=== PATIENT | female | born 1940 | race Hispanic/Latino ===

== ENCOUNTER 2016-09-24 11:17 | Inpatient (IN) | payer OTHER ==
[~2016-09-24] VITALS: Ht 157.5 cm; Wt 68.0 kg
[~2016-09-24 11:17] MED LIST: AUGMENTIN 875 M1 TAB PO; CLEOCIN HCL300 MG PO; DOXYCYCLINE MO100 MG PO; LISINOPRIL40 MG PO; MOBIC15 MG PO; VICODIN5-300 PO; VITAB121000 PO
--- NOTE | 2016-09-24 11:27 | NUR ---
C/O DIZZINESS SINCE THIS AM WITH VOMITING. ALSO C/O CHEST AND HEAD PAIN, DIAPHORETIC.
--- NOTE | 2016-09-24 11:37 | ED GENERAL ADULT ---
History of Present Illness General Chief Complaint: Headache Stated Complaint: JACE BURROUGHS Source: patient Exam Limitations: poor historian Vital Signs & Intake/Output Vital Signs & Intake/Output Vital Signs Date Time Temp Pulse Resp B/P B/P Pulse O2 O2 Flow FiO2 Mean Ox Delivery Rate 09/24 1350 96.5 63 20 192/88 95 Room Air 09/24 1241 193/93 09/24 1216 64 20 220/102 09/24 1138 96 Room Air 09/24 1125 95.9 63 22 166/82 22 Room Air Allergies Coded Allergies: NO KNOWN ALLERGIES (09/24/16) Reconcile Medications AMOXICILLIN/POTASSIUM CLAV (Augmentin 875-125 Tablet) 875 MG/125 MG TAB 1 TAB PO BID . CLINDAMYCIN HCL (Cleocin HCl) 300 MG CAP 1 CAP PO TID INFECTION Cyanocobalamin (Vitamin B-12) (Unknown Strength) TABLET (Unknown Dose) PO DAILY SUPPLEMENT (Reported) DOXYCYCLINE MONOHYDRATE (Doxycycline Monohydrate) 100 MG CAP 1 CAP PO BID INFECTION HYDROCODONE/ACETAMINOPHEN (Hydrocodon-Acetaminophen 5-325) 1 TAB TAB 1 TAB PO TID PRN PAIN Lisinopril 40 MG TABLET 1 TAB PO DAILY BP (Reported) Meloxicam (Mobic) 15 MG TAB 1 TAB PO DAILY PRN ARTHRITIS PAIN Triage Note: C/O DIZZINESS SINCE THIS AM WITH VOMITING. DENIES PAIN. Triage Nurses Notes Reviewed? yes Onset: Abrupt Duration: unknown duration Timing: recent history HPI: 09/24/16 2:41 pm 76-year-old female presents to the emergency department with an episode of a headache and vomiting. According to the patient she was in her usual state of health until today when she developed a sudden onset of severe headache and dry heaves. She denies any chest pain or shortness of breath. The onset of the symptoms were abrupt, the duration was just today, the severity is significant; as her symptoms required her to come to the emergency department for care. Past History Travel History Traveled to [place] past 21 day No Medical History Any Pertinent Medical History? 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 No Review of Systems Review of Systems Constitutional: Denies: fever. EENTM: Denies: visual changes. Respiratory: Denies: short of breath. Cardiovascular: Denies: chest pain. GI: Reports: nausea, vomiting. Genitourinary: Reports: no symptoms. Musculoskeletal: Reports: no symptoms. Skin: Denies: rash. Neurological/Psychological: Reports: headache. Hematologic/Endocrine: Denies: bruising, bleeding. Physical Exam Physical Exam General Appearance: alert, awake, anxious, moderate distress Head: atraumatic, normal appearance Eyes: Bilateral: normal appearance, PERRL, EOMI. Ears, Nose, Throat: normal pharynx, normal ENT inspection Neck: normal inspection, supple, full range of motion Respiratory: normal breath sounds, chest non-tender, no respiratory distress Cardiovascular: regular rate/rhythm Peripheral Pulses: 4+ radial (R), 4+ radial (L) Gastrointestinal: soft, non-tender Back: decreased range of motion Extremities: pedal edema Neurologic/Psych: no motor/sensory deficits, awake, alert, oriented x 3 Skin: intact, normal color, warm/dry Core Measures ACS in differential dx? Yes CVA/TIA Diagnosis: No Severe Sepsis Present: No Septic Shock Present: No Progress Differential Diagnoses I considered the following diagnoses in my evaluation of the patient: [CVA, hypertensive urgency, aortic dissection, acute coronary syndrome] Plan of Care: Orders Procedure Date/time Status Admit to inpatient 09/24 1441 Active Saline Lock 09/24 1153 Active TROPONIN LEVEL 09/24 1153 Complete LYME TITRE 09/24 1153 Active WESTERGREN SED RATE 09/24 1153 Active COMPREHENSIVE METABOLIC PANEL 09/24 1153 Complete CBC WITHOUT DIFFERENTIAL 09/24 1153 Active EKG 09/24 1130 Active Laboratory Tests 09/24/ 1205: Anion Gap 11, Estimated GFR > 60, BUN/Creatinine Ratio 34.3 H, Glucose 132 H, Calcium 9.2, Total Bilirubin 0.5, AST 24, ALT 36, Alkaline Phosphatase 49, Troponin I 0.21 *H, Total Protein 6.8, Albumin 3.9, Globulin 2.9, Albumin/ Globulin Ratio 1.3, CBC w Diff NO MAN DIFF REQ, RBC 3.92 L, MCV 96.7, MCH 31.9 H, RDW 13.3, MPV 7.5, Gran % 66.7, Lymphocytes % 24.8, Monocytes % 4.7, Eosinophils % 3.3, Basophils % 0.5, Absolute Granulocytes 4.7, Absolute Lymphocytes 1.8, Absolute Monocytes 0.3, Absolute Eosinophils 0.2, Absolute Basophils 0, PUBS MCHC 33.0, ESR Westergren Pending, Lyme Disease Antibody Pending Initial ED EKG: NSR, old AWMI, NO CHANGE Departure Departure Disposition: STILL A PATIENT Condition: Stable Clinical Impression Primary Impression: Hypertensive urgency Secondary Impressions: Coronary syndrome, acute Referrals: XIOMARA CALLEJAS MD (PCP/Family) Departure Forms: Customer Survey General Discharge Information Comments CT HEAD IMPRESSION: No evidence for acute intracranial injury. Age-appropriate appearance of the brain. 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 <Electronically signed in Other Vendor System> SIGNED BY: LUDMILA OZUNA MD 09/24/16 1172 The patient was given aspirin. I discussed the case with Dr. Oliva who wiill evaluate the patient in the Emergency Department. Chest x-ray was negative Admission Note Spoke With: XIOMARA CALLEJAS MD Documentation of Exam: Documentation of any treatments & extenuating circumstances including Concerns Regarding Discharge (functional status, medication knowledge or non-compliance, living conditions, etc.) that warrant an admission rather than observation: [The patient will need serial troponins, cardiology consultation, IV antiemetics, IV antihypertensive, possible echocardiogram] Critical Care Note Critical Care Note Critical Care Time: 30-74 min
[2016-09-24 12:12] LABS: ABSOLUTE BASOPHIL COUNT 0 /CUMM (0.0-0.2); ABSOLUTE EOSINOPHIL COUNT 0.2 /CUMM (0.0-0.7); ABSOLUTE GRANULOCYTE CT 4.7 /CUMM (1.4-6.5); ABSOLUTE LYMPH COUNT 1.8 /CUMM (1.2-3.4); ABSOLUTE MONOCYTE COUNT 0.3 /CUMM (0.10-0.60); BASOPHIL % 0.5 % (0.0-2.0); EOSINOPHIL % 3.3 % (0-5); GRANULOCYTE % 66.7 % (42.2-75.2); HEMATOCRIT 37.9 % (37-47); MEAN CORPUSCULAR HGB 31.9 PG (27.0-31.0); MEAN CORPUSCULAR VOLUME 96.7 FL (81.0-99.0); MEAN PLATELET VOLUME 7.5 FL (7.4-10.4); PLATELET COUNT 260 /CUMM (130-400); RBC DISTRIBUTION WIDTH 13.3 % (11.5-14.5); RED BLOOD CELL CT 3.92 /CUMM (4.20-5.40); WHITE BLOOD CELL COUNT 7.1 /CUMM (4.8-10.8)
--- NOTE | 2016-09-24 12:25 | CT SCAN REPORT ---
EXAMINATION: CT HEAD WITHOUT CONTRAST CLINICAL INFORMATION: Headache. COMPARISON: None. TECHNIQUE: Contiguous axial images of the brain were obtained without IV contrast. DLP: 621 mGy-cm. FINDINGS: There are no pathologic extra-axial fluid collections. The lateral, third, fourth ventricles are mildly prominent, but age-appropriate and concordant with the appearance of the sulci. There is no evidence for acute intraparenchymal hemorrhage or infarct. There is mild periventricular low-attenuation present indicative of small vessel disease. There is neither mass nor mass effect. There is no shift of midline structures. The paranasal sinuses and mastoid air cells are clear. There are no osseous lesions. IMPRESSION: No evidence for acute intracranial injury. Age-appropriate appearance of the brain.
--- NOTE | 2016-09-24 12:43 | NUR ---
PATIENT IS UP AND AMBULATED TO BR.
--- NOTE | 2016-09-24 14:36 | RADIOLOGY REPORT ---
EXAMINATION: CHEST 1 VIEW CLINICAL INFORMATION: Vomiting. Elevated troponin. COMPARISON: 11/02/2012. TECHNIQUE: An AP view of the chest is provided. FINDINGS: The cardiac silhouette is not enlarged. The mediastinal and hilar contours are unremarkable. There are neither pleural effusions nor pneumothoraces. There is marked elevation to the right hemidiaphragm, unchanged from prior exam. There are no consolidations. The osseous structures are unremarkable. Surgical clips are identified within the right upper quadrant. IMPRESSION: No evidence for acute disease.
--- NOTE | 2016-09-24 14:57 | NUR ---
PATIENT RESTING QUIETLY W/ EYES CLOSED AND DEEP/EVEN RESPIRATIONS. OFFERS NO C/O.
[2016-09-24] MEDS ORDERED: LISINOPRIL40 M1 PO (15:18)
[2016-09-24] MEDS ORDERED: VITAMIN B122500 MC1 PO (15:19)
--- NOTE | 2016-09-24 15:34 | History & Physical ---
See Addendum General Information and HPI MD Statement: I have seen and personally examined DREW DRISCOLL and documented this H&P. The patient is a 76 year old F who presented with a patient stated chief complaint of [hypertensvie urgency]. Source of Information: patient, family Exam Limitations: no limitations History of Present Illness: is a 76-year-old lady with past medical history of hypertension, hyperlipidemia who came in with chief complaint of headache and nausea. She complained of dizziness and one episode of vomiting prior to today's presentation. The the patient was in her usual state of health until today prior to presentation she started experiencing sudden onset of severe headache and started dry heating. The onset of symptoms was abrupt, and her headache was very severe. She describes her headache as 10/10, dull aching,all over, that started suddenly when she was talking on the phone today.She endorses that the history that she was her usual self and like everyday she visited the [facility] which she does daily and continued to work outside in the yard and between 9am and 10 am today morning, she suddenly started having this headache which was 12/10, dull aching, all over and she has to put her phone down and call for some help.She also felt lazy, dizzy and lightheaded. She was concerned as the headache stayed and therefore called EMS. She also c/o some funny feeling in the palm, with lasted for sometime. She denied any chest pain,blurry vision, worsening weakness ,slurring speech, nausea, vomiting, diarrhea. She lives by herself and most of the times is outdoor and reports to have tick bite ( she says she keeps having them as she is working in yard all the time. She does all her activities of living by herself and also drives around. Of lately she has been more weak and has falls on ans off but usually they are not bad and she can stabilise herself without having any major injury. She has also been constipated for sometimes nad uses medications for the same. Allergies/Medications Allergies: Coded Allergies: amlodipine (Intermediate, FLUSHING RASH TINGLING LIPS/TONGUE 09/24/16) Home Med list Cyanocobalamin (Vitamin B-12) (Vitamin B12) (Unknown Strength) TABLET (Unknown Dose) PO DAILY SUPPLEMENT (Reported) Lisinopril 40 MG TABLET 1 TAB PO DAILY BP (Reported) Compliance With Home Meds: POOR Past History Travel History Traveled to [place] past 21 day No Medical History Neurological: NONE EENT: NONE Cardiovascular: hypertension, Respiratory: NONE Gastrointestinal: CHOLELITHIASIS Hepatic: NONE Renal: NONE Musculoskeletal: NONE Psychiatric: NONE Endocrine: NONE Blood Disorders: NONE Cancer(s): 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 Home Who Do You Live With? self Services at Home: None Primary Language: Turkmen Smoking Status: Never Smoked ETOH Use: occasional use Illicit Drug Use: denies illicit drug use Functional Ability ADLs Independent: dressing, eating, toileting, bathing. Ambulation: independent IADLs Independent: shopping, housework, finances, food prep, telephone, transportation , medication admin. Review of Systems Review of Systems Constitutional: Reports: malaise, weakness. Denies: chills, diaphoresis, fever, unexplained weight loss. EENTM: Denies: blurred vision, double vision, visual changes, eye pain. Cardiovascular: Reports: palpitations. Denies: chest pain, edema, orthopena, peripheral edema, syncope. Respiratory: Denies: cough, hemoptysis, orthopnea, short of breath. GI: Denies: abdominal pain, bloating, constipation, diarrhea, distention. Genitourinary: Reports: no symptoms. Musculoskeletal: Reports: no symptoms. Skin: Reports: no symptoms. Neurological/Psychological: Reports: see HPI. Hematologic/Endocrine: Reports: no symptoms. Immunologic/Allergic: Reports: no symptoms. All Other Systems: Reviewed and Negative Exam & Diagnostic Data Last 24 Hrs of Vital Signs/I&O Vital Signs Date Time Temp Pulse Resp B/P B/P Pulse O2 O2 Flow FiO2 Mean Ox Delivery Rate 09/25 0023 98.8 75 16 106/60 95 Room Air 09/24 1753 98.1 78 14 130/68 99 Room Air 09/24 1714 83 174/89 09/24 1657 83 174/89 09/24 1648 97.4 84 18 174/89 97 Room Air 09/24 1350 96.5 63 20 192/88 95 Room Air 09/24 1241 193/93 09/24 1216 64 20 220/102 09/24 1138 96 Room Air 09/24 1125 95.9 63 22 166/82 22 Room Air Intake & Output 09/25 0800 09/25 0000 09/24 1600 Intake Total 120 Output Total 400 Balance -280 Intake, Oral 120 Output, Urine 400 Patient 68.039 kg 68.039 kg Weight Weight Reported by Patient Measurement Method Physical Exam General Appearance Alert, Oriented X3, Cooperative, No Acute Distress Skin small macular red lesion from bug bite various places, arm and leg Skin Temp/Moisture Exam: Cool/Dry Sepsis Skin Exam (color): Normal for Ethnicity Neck Supple, No JVD Lymphatic no lad Cardiovascular Normal S1, Normal S2, No Murmurs Lungs Clear to Auscultation, Normal Air Movement Abdomen Normal Bowel Sounds, Soft, No Tenderness Neurological Strength at 5/5 X4 Ext, Normal Tone, Sensation Intact Extremities No Clubbing, No Cyanosis, No Edema, Normal Pulses Vascular Normal Pulses Diagnostic Data EKG Results NSR, 61, Normal axis, PA 172, QTC 435 Assessment/Plan Assessment: is a 76-year-old lady with past medical history of hypertension, hyperlipidemia who came in with chief complaint of headache and nausea. She complained of dizziness and one episode of vomiting prior to today's presentation. The the patient was in her usual state of health until today prior to presentation she started experiencing sudden onset of severe headache and started try heating. The onset of symptoms was abrupt, and her headache was very severe. She received one time of IV Tylenol, 20 mg of IV hydralazine, and time of IV Zofran, baby aspirin stat On arrival at the ER,her blood pressure was noted to be 166/82, pulse was 63, temperature was 95.9, respiration was 22. subsequently her blood pressure was found to increase to 192/88 with numbers : systolic as high as 220 and diastolic upto 102. Relevant lab white count of 7.1, H/H of 12.5/37.9, platelet of 260, MCV was noted to be 36.7. Electrolytes sodium of 1:30, potassium of 4.3, BUN/creatinine 24/0.7, glucose of 132. LFTs within normal limit, total protein of 6.8, albumin of 3.9. Initial set of troponin was found to be positive at 0.21. Lymes antibody titer were sent from the ER which are pending. Problem list alongwith assessment and plan #1 Hypertensive urgency with no end organ damage #2 positive troponin most likely 2/2 to demand ischemia. #3 h/o HTN #4 H/o HL Plan * Ct to monitor vitals, i/o * Ct to trend EKG/Troponin * Initial troponin positive but second trending down, will trend third level and if trending down will not check further. * Most likely 2/2 to demand ischemia. * Continue to monitor the blood pressure closely, donot drop aggressively, target around 160 * Patient received 20 mg iv hydralazine push, however initial the bP came down ut continued to stay 200/100 again. * Therefore, she received additional 10 mg iv push of hydralazine. * She was also given 5 mg amlodipine, however she didn't tolerate it well had tingling numbness in the lips, therefore this was held * Ct lisinopril 40 mg OD from am. * Echocardiogram to asses LVF in am. * Cardiology consult appreciated. Please list Amlodipine as allergy : causes lip swelling, tingling and numbness around lip. DNR/DNI DVT px lovenox Heart healthy diet. PP As Ranked By This Provider Problem List: 1. Hypertensive urgency Core Measures/Miscellaneous Acute Coronary Syndrome ACS Diagnosis: No Cerebrovascular Accident CVA/TIA Diagnosis: No Congestive Heart Failure CHF Diagnosis: No Venous Thromboembolism VTE Risk Factors: Age > 40 No [facility] VTE prophylaxis d/t: No contraindications No VTE Pharm Prophylaxis d/t: No contraindications VTE Diagnosis: No VTE Type: NONE VTE Confirmed by (Test): NONE Severe Sepsis Severe Sepsis Present: No Septic Shock Septic Shock Present: No Miscellaneous Documentation Attending Case Discussed With: DR melgar Primary Care Physician: XIOMARA CALLEJAS MD Patient sees these Specialists .. Level of Patient Care: Telemetry Resident Review Statement Resident Statement: admitted by resident
--- NOTE | 2016-09-24 15:53 | NUR ---
REPEAT TROPONIN DRAWN AND SENT TO LAB.
--- NOTE | 2016-09-24 15:53 | NUR ---
HOUSE STAFF AND DR. ALFARO WITH PT, EKG TO BE DONE WHEN THEY ARE FINISHED.
--- NOTE | 2016-09-24 16:33 | NUR ---
CRITICAL TEST RESULTS [id number] DREW DRISCOLL 76 F TESTS AND RESULTS: TROP. 0.19 Results received and read back by: ANGIE CERON Results received date and time: 09/24/16 1634 The following provider was notified of the results, and read the results back: Notified date and time: 09/24/16 at 1634
--- NOTE | 2016-09-24 16:37 | NUR ---
PT ADMITTED TO ROOM 180-2; ROOM IS CLEAN
[2016-09-24 17:53] VITALS: BP 130/68
--- NOTE | 2016-09-24 19:08 | NUR ---
ADMISSION NOTE/ALLERGIC REACTION: PT ARRIVED TO FLOOR AT 17:40 PM ON TELE MONITOR ACCOMPANIED BY ED RN [place]. PLACED ON TELE MONITOR & ORIENTED TO ROOM. THIS RN NOTICED A BRIGHT RED RASH ACROSS THE BRIDGE OF THE NOSE. UPON ASSESSMENT RASH CONTINUED TO SPREAD AROUND THE MOUTH AND JAW TO THE CHEST. PT C/O NUMB/TINGLY FEELING ON THE LIPS. NO RESP DISTRESS. DR THORNE CALLED IMMEDIATELY & CAME TO BEDSIDE TO EVALUATE. IV BENEDRYL GIVEN PER EMAR. PT C/O NUMB/TINGLY SENSATION ON TONGUE AT THIS TIME. THIS RN REMAINED AT BEDSIDE FOR 45 MINUTES TO CONTINUOUSLY ASSESS THE PT. SYMPTOMS SLOWLY DECREASED. PT DENIES NUMB/TINGLY SENSATION. RASH PERSISTS ON NOSE AND APPEARS TO BE RESOLVING ON THE CHEST AND JAW. WILL CONTINUE TO MONITOR.
--- NOTE | 2016-09-24 19:32 | Admission Certification ---
Admission Certification Certification Statement - As attending physician, I certify that at the time of - admission, based on clinical presentation, severity of - symptoms, need for further diagnostic testing and - therapeutic interventions, and risk of adverse outcomes - without in-hospital treatment, in my clinical assessment, - this patient requires an acute hospital stay for a minimum - of two nights or longer. I have also considered psychsocial - factors such as support system, advanced age, financial - issues, cognitive issues, and failed out-patient treatments, - past re-admission history, safety of patient, and lack of - compliance as applicable. Specific rationale supporting this admission is: 6 nausea vomiting very elevated blood pressure hypertensive emergency and a bump in the troponin
--- NOTE | 2016-09-24 19:33 | PN- Att Addend ---
Attending Addendum Attending Brief Note 76-year-old Camb[place]ian female. Today suddenly she didn't feel good planing of nausea vomiting and severe headache made her come to the emergency room where he was found to have very high blood pressure which had a CAT scan of the head which showed no acute pathology and she was treated urgently with IV medications and her blood pressure came down, but her troponin was 0.21 was might be demand ischemia but will admit have a cardiology consultation monitor her blood pressure closely. Laboratory Tests 09/24 09/24 09/24 1552 1542 1205 Chemistry Sodium (137 - 145 mmol/L) 138 Potassium (3.5 - 5.1 mmol/L) 4.3 Chloride (98 - 107 mmol/L) 99 Carbon Dioxide (22 - 30 mmol/L) 28 Anion Gap (5 - 16) 11 BUN (7 - 17 mg/dL) 24 H Creatinine (0.5 - 1.0 mg/dL) 0.7 Estimated GFR (>60 ml/min) > 60 BUN/Creatinine Ratio (7 - 25 %) 34.3 H Glucose (65 - 99 mg/dL) 132 H Calcium (8.4 - 10.2 mg/dL) 9.2 Total Bilirubin (0.2 - 1.3 mg/dL) 0.5 AST (14 - 36 U/L) 24 ALT (9 - 52 U/L) 36 Alkaline Phosphatase (<127 U/L) 49 Troponin I (< 0.11 ng/ml) 0.19 *H Cancelled 0.21 *H Total Protein (6.3 - 8.2 g/dL) 6.8 Albumin (3.5 - 5.0 g/dL) 3.9 Globulin (1.9 - 4.2 gm/dL) 2.9 Albumin/Globulin Ratio (1.1 - 2.2 %) 1.3 Hematology CBC w Diff NO MAN DIFF REQ WBC (4.8 - 10.8 /CUMM) 7.1 RBC (4.20 - 5.40 /CUMM) 3.92 L Hgb (12.0 - 16.0 G/DL) 12.5 Hct (37 - 47 %) 37.9 MCV (81.0 - 99.0 FL) 96.7 MCH (27.0 - 31.0 PG) 31.9 H RDW (11.5 - 14.5 %) 13.3 Plt Count (130 - 400 /CUMM) 260 MPV (7.4 - 10.4 FL) 7.5 Gran % (42.2 - 75.2 %) 66.7 Lymphocytes % (20.5 - 51.1 %) 24.8 Monocytes % (1.7 - 9.3 %) 4.7 Eosinophils % (0 - 5 %) 3.3 Basophils % (0.0 - 2.0 %) 0.5 Absolute Granulocytes (1.4 - 6.5 /CUMM) 4.7 Absolute Lymphocytes (1.2 - 3.4 /CUMM) 1.8 Absolute Monocytes (0.10 - 0.60 /CUMM) 0.3 Absolute Eosinophils (0.0 - 0.7 /CUMM) 0.2 Absolute Basophils (0.0 - 0.2 /CUMM) 0 PUBS MCHC (33.0 - 37.0 G/DL) 33.0 ESR Westergren (0 - 20 MM) 21 H Serology Lyme Disease Antibody Pending
--- NOTE | 2016-09-24 20:18 | Cons- Cardiology ---
General Information and HPI Consulting Request Date of Consult: 09/24/16 Requested By: XIOMARA CALLEJAS MD Reason for Consult: Hypertensive urgency History of Present Illness: the patient is a 76-year-old female with history of hypertension and hyperlipidemia who presents with complaint of nausea, vomiting, and headache. She was feeling well until the day of admission when she developed sudden onset of severe headache. This was associated with dizziness, and a single episode of vomiting. She has had no chest pain. No palpitations. No syncope. No orthopnea. No lightheadedness or dizziness. Upon arrival in the emergency department, she was noted to have severely elevated blood pressure. She was treated with IV hydralazine for the hypertension. She notes that she took her lisinopril this morning, however she vomited afterwards. Allergies/Medications Allergies: Coded Allergies: amlodipine (Intermediate, FLUSHING RASH TINGLING LIPS/TONGUE 09/24/16) Home Med List: Cyanocobalamin (Vitamin B-12) (Vitamin B12) (Unknown Strength) TABLET (Unknown Dose) PO DAILY SUPPLEMENT (Reported) Lisinopril 40 MG TABLET 1 TAB PO DAILY BP (Reported) Current Medications: Current Medications Sig/Chad Start time Last Medication Dose Route Stop Time Status Admin Acetaminophen 650 MG Q6P PRN 09/24 1545 AC PO Acetaminophen 1,000 MG Q6P PRN 09/24 1545 AC IV Acetaminophen 0 .STK-MED ONE 09/24 1215 DC IV Acetaminophen 1,000 MG ONCE ONE 09/24 1200 DC 09/24 IV 09/24 1201 1216 Amlodipine Besylate 0 .STK-MED ONE 09/24 1716 DC PO Amlodipine Besylate 5 MG ONCE ONE 09/24 1645 DC 09/24 PO 09/24 1646 1714 Aspirin 0 .STK-MED ONE 09/24 1320 DC PO Aspirin 162 MG ONCE ONE 09/24 1315 DC 09/24 PO 09/24 1316 1320 Cyanocobalamin 1,000 MCG DAILY 09/25 1000 AC PO Diphenhydramine HCl 25 MG ONCE ONE 09/24 1800 DC 09/24 IV 09/24 1801 1756 Enoxaparin Sodium 40 MG DAILY@1600 09/25 1600 AC SC Enoxaparin Sodium 0 .STK-MED ONE 09/24 1606 DC SC Enoxaparin Sodium 40 MG DAILY 09/24 1540 DC 09/24 SC 1604 Hydralazine HCl 10 MG ONCE ONE 09/24 1645 DC 09/24 IV 09/24 1646 1655 Hydralazine HCl 0 .STK-MED ONE 09/24 1633 DC .ROUTE Hydralazine HCl 0 .STK-MED ONE 09/24 1215 DC .ROUTE Hydralazine HCl 5 MG ONCE ONE 09/24 1200 DC 09/24 IV 09/24 1201 1216 Lisinopril 40 MG DAILY 09/25 1000 AC PO Ondansetron HCl 4 MG ONCE ONE 09/24 1800 DC IV 09/24 1801 Ondansetron HCl 0 .STK-MED ONE 09/24 1320 DC .ROUTE Ondansetron HCl 4 MG ONCE ONE 09/24 1315 DC 09/24 IV 09/24 1316 1320 Oxycodone/ 2 TAB Q6P PRN 09/24 1545 AC Acetaminophen PO Review of Systems Review of Systems: No rash. No tremor. No melena. No diaphoresis. All other systems are reviewed and are noted to be negative. Past History Travel History Traveled to [place] past 21 day No Medical History Blood Transfusion Hx: No Neurological: NONE EENT: NONE Cardiovascular: hypertension, hyperlipidemia Respiratory: NONE Gastrointestinal: GERD, CHOLELITHIASIS Hepatic: NONE Renal: NONE Musculoskeletal: NONE Psychiatric: anxiety, depression Endocrine: NONE Blood Disorders: NONE Cancer(s): NONE REGISTERED REPRESENTATIVE/Reproductive: NONE Surgical History Surgical History: hysterectomy Family History Relations & Conditions If Any: FATHER FH: myocardial infarction Psychosocial History Where Do You Live? Home Services at Home: None Smoking Status: Never Smoked ETOH Use: denies use Exam & Diagnostic Data Vital Signs and I&O Vital Signs Date Time Temp Pulse Resp B/P B/P Pulse O2 O2 Flow FiO2 Mean Ox Delivery Rate 09/24 1753 98.1 78 14 130/68 99 Room Air 09/24 1714 83 174/89 09/24 1657 83 174/89 09/24 1648 97.4 84 18 174/89 97 Room Air 09/24 1350 96.5 63 20 192/88 95 Room Air 09/24 1241 193/93 09/24 1216 64 20 220/102 09/24 1138 96 Room Air 09/24 1125 95.9 63 22 166/82 22 Room Air Intake & Output 09/24 1600 09/24 0800 09/24 0000 09/23 1600 09/23 0800 09/23 0000 Intake Total Output Total Balance Patient 150 lb Weight Weight Reported by Patient Measurement Method Physical Exam: Gen: The patient is in no acute distress HEENT: Normal nose, ears, and oropharynx. Pupils equal bilaterally. Conjunctiva normal. Neck: Supple with no JVD, no masses, and no thyromegaly Lungs: Clear to auscultation with normal respiratory effort Heart: RRR, S1, S2, no murmurs. No peripheral edema, 2+ pulses in the lower extremities bilaterally Abdomen: Soft, nontender, no masses. No hepatomegaly. No splenomegaly Extremities: No clubbing or cyanosis. Normal muscle strength in the upper and lower extremities. Skin: Normal skin turgor with no skin ulcers or lesions noted. Neuro: Cranial nerves intact. Sensation intact Psych: Alert and oriented 3 with appropriate affect Labs/Ronaldo Results: Laboratory Tests 09/24 09/24 09/24 1552 1542 1205 Chemistry Sodium (137 - 145 mmol/L) 138 Potassium (3.5 - 5.1 mmol/L) 4.3 Chloride (98 - 107 mmol/L) 99 Carbon Dioxide (22 - 30 mmol/L) 28 Anion Gap (5 - 16) 11 BUN (7 - 17 mg/dL) 24 H Creatinine (0.5 - 1.0 mg/dL) 0.7 Estimated GFR (>60 ml/min) > 60 BUN/Creatinine Ratio (7 - 25 %) 34.3 H Glucose (65 - 99 mg/dL) 132 H Calcium (8.4 - 10.2 mg/dL) 9.2 Total Bilirubin (0.2 - 1.3 mg/dL) 0.5 AST (14 - 36 U/L) 24 ALT (9 - 52 U/L) 36 Alkaline Phosphatase (<127 U/L) 49 Troponin I (< 0.11 ng/ml) 0.19 *H Cancelled 0.21 *H Total Protein (6.3 - 8.2 g/dL) 6.8 Albumin (3.5 - 5.0 g/dL) 3.9 Globulin (1.9 - 4.2 gm/dL) 2.9 Albumin/Globulin Ratio (1.1 - 2.2 %) 1.3 Hematology CBC w Diff NO MAN DIFF REQ WBC (4.8 - 10.8 /CUMM) 7.1 RBC (4.20 - 5.40 /CUMM) 3.92 L Hgb (12.0 - 16.0 G/DL) 12.5 Hct (37 - 47 %) 37.9 MCV (81.0 - 99.0 FL) 96.7 MCH (27.0 - 31.0 PG) 31.9 H RDW (11.5 - 14.5 %) 13.3 Plt Count (130 - 400 /CUMM) 260 MPV (7.4 - 10.4 FL) 7.5 Gran % (42.2 - 75.2 %) 66.7 Lymphocytes % (20.5 - 51.1 %) 24.8 Monocytes % (1.7 - 9.3 %) 4.7 Eosinophils % (0 - 5 %) 3.3 Basophils % (0.0 - 2.0 %) 0.5 Absolute Granulocytes (1.4 - 6.5 /CUMM) 4.7 Absolute Lymphocytes (1.2 - 3.4 /CUMM) 1.8 Absolute Monocytes (0.10 - 0.60 /CUMM) 0.3 Absolute Eosinophils (0.0 - 0.7 /CUMM) 0.2 Absolute Basophils (0.0 - 0.2 /CUMM) 0 PUBS MCHC (33.0 - 37.0 G/DL) 33.0 ESR Westergren (0 - 20 MM) 21 H Serology Lyme Disease Antibody Pending Diagnostic Data EKG Results EKG tracing is independently reviewed, and reveals normal sinus rhythm at 61, possible anteroseptal infarct age undetermined CXR Results chest x-ray: Negative Other Results head CT: Negative Assessment/Plan Assessment/Plan The patient is a 76-year-old female with history of hypertension presenting with headache, nausea, and uncontrolled hypertension. She is admitted for hypertensive urgency. she is noted to have a mild troponin elevation, which is likely secondary to demand ischemia. No chest pain or shortness of breath. Plan: * Continue lisinopril 40 milligrams daily. * Add amlodipine 5 milligrams daily for additional BP control * One time doses of hydralazine can be given as needed for persistent elevated blood pressure. * Monitor on telemetry. * Check serial troponin. * Echocardiogram. Consult Acknowledgment - Thank you for your consult request.
--- NOTE | 2016-09-24 21:12 | Event Note ---
Event Note Event Note: Notified by RN at 1745 that patient developed a rash in distribution cheeks and perioral area. She also c/o paresthesia around her lips and tongue. She took amlodipine (new medication) today. Allergic reaction was a concern. It does not appear she has any shortness of breathe, stridor, cough, perioral edema. No signs or symptoms suggestive of CVA. She was given bendaryl iv. RN was asked to continue monitoring the patient for worsening rash, or respiratory compromise. Symptoms gradually improved post tx. Amlodipine was DC'd, and has been added to her allergy profile in EMR.
[2016-09-25 00:23] VITALS: BP 106/60
--- NOTE | 2016-09-25 07:44 | PN- Housestaff ---
Subjective Follow-up For: [hypertensvie urgency Tele-Events Since Last Visit: Sinus rhythm, heart rate in the 60s, no overnight events Subjective: Afebrile, blood pressure 120s over 60s, saturating well on room air. No overnight events were reported. Patient denies any current active complaints. Review of Systems Constitutional: Reports: no symptoms. Objective Last 24 Hrs of Vital Signs/I&O Vital Signs Date Time Temp Pulse Resp B/P B/P Pulse O2 O2 Flow FiO2 Mean Ox Delivery Rate 09/25 0913 60 120/64 09/25 0823 99.1 60 18 120/64 94 Room Air 09/25 0023 98.8 75 16 106/60 95 Room Air 09/24 1753 98.1 78 14 130/68 99 Room Air 09/24 1714 83 174/89 09/24 1657 83 174/89 09/24 1648 97.4 84 18 174/89 97 Room Air Intake & Output 09/25 1600 09/25 0800 09/25 0000 Intake Total 480 120 120 Output Total 500 400 Balance 480 -380 -280 Intake, Oral 480 120 120 Output, Urine 500 400 Patient 68.039 kg Weight Physical Exam General Appearance: Alert, Oriented X3, Cooperative, No Acute Distress HEENT: Atraumatic, PERRLA, EOMI, Mucous Membr. moist/pink Cardiovascular: Regular Rate, Normal S1, Normal S2, No Murmurs Lungs: Clear to Auscultation, Normal Air Movement Abdomen: Soft, No Tenderness Neurological: Normal Speech Extremities: No Clubbing, No Cyanosis, No Edema Current Medications: Current Medications Sig/Chad Start time Last Medication Dose Route Stop Time Status Admin Acetaminophen 650 MG Q6P PRN 09/24 1545 AC PO Acetaminophen 1,000 MG Q6P PRN 09/24 1545 AC IV Amlodipine Besylate 0 .STK-MED ONE 09/24 1716 DC PO Amlodipine Besylate 5 MG ONCE ONE 09/24 1645 DC 09/24 PO 09/24 1646 1714 Cyanocobalamin 1,000 MCG DAILY 09/25 1000 AC 09/25 PO 0912 Diphenhydramine HCl 25 MG ONCE ONE 09/24 1800 DC 09/24 IV 09/24 1801 1756 Enoxaparin Sodium 40 MG DAILY@1600 09/25 1600 AC SC Enoxaparin Sodium 0 .STK-MED ONE 09/24 1606 DC SC Enoxaparin Sodium 40 MG DAILY 09/24 1540 DC 09/24 SC 1604 Hydralazine HCl 10 MG ONCE ONE 09/24 1645 DC 09/24 IV 09/24 1646 1655 Hydralazine HCl 0 .STK-MED ONE 09/24 1633 DC .ROUTE Lisinopril 40 MG DAILY 09/25 1000 AC 09/25 PO 0913 Ondansetron HCl 4 MG ONCE ONE 09/24 1800 DC IV 09/24 1801 Oxycodone/ 2 TAB Q6P PRN 09/24 1545 AC Acetaminophen PO Patient Medication 1 ED .STK-MED ONE 09/25 1414 DC Teaching ED 09/25 1415 Last 24 Hrs of Lab/Ronaldo Results Last 24 Hrs of Labs/Mics: Laboratory Tests 09/25/16 0605: Anion Gap 9, Estimated GFR 54 L, BUN/Creatinine Ratio 28.0 H, Magnesium 2.2, CBC w Diff NO MAN DIFF REQ, RBC 3.95 L, MCV 97.0, MCH 32.1 H, RDW 13.7, MPV 7.7, Gran % 60.6, Lymphocytes % 31.5, Monocytes % 6.3, Eosinophils % 1.3, Basophils % 0.3, Absolute Granulocytes 3.9, Absolute Lymphocytes 2.0, Absolute Monocytes 0.4, Absolute Eosinophils 0.1, Absolute Basophils 0, PUBS MCHC 33.1 09/25/16 0100: Troponin I 0.16 *H 09/24/162155: Urine Color YEL, Urine Clarity CLEAR, Urine pH 7.0, Ur Specific [place] 1.010, Urine Protein NEG, Urine Ketones NEG, Urine Nitrite NEG, Urine Bilirubin NEG, Urine Urobilinogen 0.2, Ur Leukocyte Esterase TRACE H, Ur Microscopic SEDIMENT EXAMINED, Urine RBC RARE, Urine WBC 1-3 H, Ur Epithelial Cells RARE, Urine Bacteria FEW H, Urine Hemoglobin NEG, Urine Glucose NEG 09/24/16 1552: Troponin I 0.19 *H 09/24/16 1542: Troponin I Cancelled Microbiology 09/25 2155 URINE ROUT: Urine Culture - RES 09/24 2009 BLOOD: Blood Culture - RES 09/25 1999 BLOOD: Blood Culture - RES Assessment/Plan Assessment: #1 Hypertensive urgency with no end organ damage * Blood pressure is well controlled this morning * Continue lisinopril 40 mg #2 positive troponin most likely 2/2 to demand ischemia. * Pending echo * We will follow cardiology recommendation Heart healthy DVT prophylaxis with Lovenox DNR/DNI Problem List: 1. Hypertensive urgency Pain Ratin Pain Location: Headache Pain Goal: Remain pain free Pain Plan: See assessment and plan Tomorrow's Labs & Rationales: See assessment and plan
[2016-09-25 07:51] LABS: ABSOLUTE BASOPHIL COUNT 0 /CUMM (0.0-0.2); ABSOLUTE EOSINOPHIL COUNT 0.1 /CUMM (0.0-0.7); ABSOLUTE GRANULOCYTE CT 3.9 /CUMM (1.4-6.5); ABSOLUTE MONOCYTE COUNT 0.4 /CUMM (0.10-0.60); BASOPHIL % 0.3 % (0.0-2.0); EOSINOPHIL % 1.3 % (0-5); GRANULOCYTE % 60.6 % (42.2-75.2); HEMATOCRIT 38.3 % (37-47); MEAN CORPUSCULAR HGB 32.1 PG (27.0-31.0); MEAN CORPUSCULAR HGB CONC 33.1 G/DL (33.0-37.0); MEAN PLATELET VOLUME 7.7 FL (7.4-10.4); PLATELET COUNT 273 /CUMM (130-400); RBC DISTRIBUTION WIDTH 13.7 % (11.5-14.5); RED BLOOD CELL CT 3.95 /CUMM (4.20-5.40); WHITE BLOOD CELL COUNT 6.5 /CUMM (4.8-10.8)
[2016-09-25 08:23] VITALS: BP 120/64
--- NOTE | 2016-09-25 13:17 | PN- Cardiology ---
Subjective Subjective: The patient has been clinically stable with no cardiac symptoms. Blood pressure better controlled. The patient continues to complain of a mild to moderate posterior headache. Objective Vital Signs and I&Os Vital Signs Date Time Temp Pulse Resp B/P B/P Pulse O2 O2 Flow FiO2 Mean Ox Delivery Rate 09/25 0913 60 120/64 09/25 0823 99.1 60 18 120/64 94 Room Air 09/25 0023 98.8 75 16 106/60 95 Room Air 09/24 1753 98.1 78 14 130/68 99 Room Air 09/24 1714 83 174/89 09/24 1657 83 174/89 09/24 1648 97.4 84 18 174/89 97 Room Air 09/24 1350 96.5 63 20 192/88 95 Room Air Intake & Output 09/25 1600 09/25 0800 09/25 0000 09/24 1600 09/24 0800 09/24 0000 Intake Total 120 120 Output Total 500 400 Balance -380 -280 Intake, Oral 120 120 Output, Urine 500 400 Patient 150 lb 150 lb Weight Weight Reported by Patient Measurement Method Current Medications: Current Medications Sig/Chad Start time Last Medication Dose Route Stop Time Status Admin Acetaminophen 650 MG Q6P PRN 09/24 1545 AC PO Acetaminophen 1,000 MG Q6P PRN 09/24 1545 AC IV Amlodipine Besylate 0 .STK-MED ONE 09/24 1716 DC PO Amlodipine Besylate 5 MG ONCE ONE 09/24 1645 DC 09/24 PO 09/24 1646 1714 Aspirin 0 .STK-MED ONE 09/24 1320 DC PO Cyanocobalamin 1,000 MCG DAILY 09/25 1000 AC 09/25 PO 0912 Diphenhydramine HCl 25 MG ONCE ONE 09/24 1800 DC 09/24 IV 09/24 1801 1756 Enoxaparin Sodium 40 MG DAILY@1600 09/25 1600 AC SC Enoxaparin Sodium 0 .STK-MED ONE 09/24 1606 DC SC Enoxaparin Sodium 40 MG DAILY 09/24 1540 DC 09/24 SC 1604 Hydralazine HCl 10 MG ONCE ONE 09/24 1645 DC 09/24 IV 09/24 1646 1655 Hydralazine HCl 0 .STK-MED ONE 09/24 1633 DC .ROUTE Lisinopril 40 MG DAILY 09/25 1000 AC 09/25 PO 0913 Ondansetron HCl 4 MG ONCE ONE 09/24 1800 DC IV 09/24 1801 Ondansetron HCl 0 .STK-MED ONE 09/24 1320 DC .ROUTE Oxycodone/ 2 TAB Q6P PRN 09/24 1545 AC Acetaminophen PO Results Last 48 Hrs of Labs/Mics: Laboratory Tests 09/25/16 0605: Anion Gap 9, Estimated GFR 54 L, BUN/Creatinine Ratio 28.0 H, Magnesium 2.2, CBC w Diff NO MAN DIFF REQ, RBC 3.95 L, MCV 97.0, MCH 32.1 H, RDW 13.7, MPV 7.7, Gran % 60.6, Lymphocytes % 31.5, Monocytes % 6.3, Eosinophils % 1.3, Basophils % 0.3, Absolute Granulocytes 3.9, Absolute Lymphocytes 2.0, Absolute Monocytes 0.4, Absolute Eosinophils 0.1, Absolute Basophils 0, PUBS MCHC 33.1 09/25/16 0100: Troponin I 0.16 *H 09/24/16 2156: Urine Color YEL, Urine Clarity CLEAR, Urine pH 7.0, Ur Specific [place] 1.010, Urine Protein NEG, Urine Ketones NEG, Urine Nitrite NEG, Urine Bilirubin NEG, Urine Urobilinogen 0.2, Ur Leukocyte Esterase TRACE H, Ur Microscopic SEDIMENT EXAMINED, Urine RBC RARE, Urine WBC 1-3 H, Ur Epithelial Cells RARE, Urine Bacteria FEW H, Urine Hemoglobin NEG, Urine Glucose NEG 09/24/16 1552: Troponin I 0.19 *H 09/24/16 1542: Troponin I Cancelled 09/24/16 1205: Lyme Ab (Western Blot) Pending, Lyme IgG 18 kDa Band Pending, Lyme IgG 23 kDa Band Pending, Lyme IgG 28 kDa Band Pending, Lyme IgG 30 kDa Band Pending, Lyme IgG 39 kDa Band Pending, Lyme IgG 41 kDa Band Pending, Lyme IgG 45 kDa Band Pending, Lyme IgG 58 kDa Band Pending, Lyme IgG 66 kDa Band Pending, Lyme IgG 93 kDa Band Pending, Lyme IgM (Western Blot) Pending, Lyme IgM 23 kDa Band Pending, Lyme IgM 39 kDa Band Pending, Lyme IgM 41 kDa Band Pending 09/24/16 1205: Anion Gap 11, Estimated GFR > 60, BUN/Creatinine Ratio 34.3 H, Glucose 132 H, Calcium 9.2, Total Bilirubin 0.5, AST 24, ALT 36, Alkaline Phosphatase 49, Troponin I 0.21 *H, Total Protein 6.8, Albumin 3.9, Globulin 2.9, Albumin/ Globulin Ratio 1.3, CBC w Diff NO MAN DIFF REQ, RBC 3.92 L, MCV 96.7, MCH 31.9 H, RDW 13.3, MPV 7.5, Gran % 66.7, Lymphocytes % 24.8, Monocytes % 4.7, Eosinophils % 3.3, Basophils % 0.5, Absolute Granulocytes 4.7, Absolute Lymphocytes 1.8, Absolute Monocytes 0.3, Absolute Eosinophils 0.2, Absolute Basophils 0, PUBS MCHC 33.0, ESR Westergren 21 H, Lyme Disease Antibody 3.58 *H Assessment/Plan Assessment/Plan Assessment: 1. Uncontrolled hypertension-clinically improved on current medication regimen 2. Minimally elevated troponin 3. Headache Recommendations: -Out of bed as tolerated -Continue current blood pressure medication regimen -Continue to monitor blood pressure for now. -Further evaluation/treatment for headache pending. -Echocardiogram pending
--- NOTE | 2016-09-25 15:24 | Patient Discharge Instructions ---
Discharge Instructions General Discharge Information You were seen/treated for: high blood pressure Special Instructions: Please follow up with cardiology and PCP as an out patient Diet Continue normal diet: Yes Activity Full Activity/No Limits: Yes Activity Self Limited: Yes Acute Coronary Syndrome Inclusion Criteria At DC or during hospital stay patient has or had the following: ACS DIAGNOSIS No Discharge Core Measures Meds if any: Prescribed or Continued at Discharge Meds if any: NOT Prescribed or Continued at Discharge Congestive Heart Failure Inclusion Criteria At DC or during hospital stay patient has or had the following: CHF DIAGNOSIS No Discharge Core Measures Meds if any: Prescribed or Continued at Discharge Meds if any: NOT Prescribed or Continued at Discharge Cerebrovascular accident Inclusion Criteria At DC or during hospital stay patient has or had the following: CVA/TIA Diagnosis No Discharge Core Measures Meds if any: Prescribed or Continued at Discharge Meds if any: NOT Prescribed or Continued at Discharge Venous thromboembolism Inclusion Criteria VTE Diagnosis No VTE Type NONE VTE Confirmed by (Test) NONE Discharge Core Measures - Per Current guidelines, there needs to be overlap - treatment for the first 5 days of Warfarin therapy. - If discharged on Warfarin prior to 5 days of - overlap therapy, the patient will need to be - assessed for post discharge needs including - *Post discharge parental anticoagulation - *Warfarin and/or parental anticoagulation education - *Follow up date to check INR post discharge At least 5 days overlap therapy as Inpatient No Meds if any: Prescribed or Continued at Discharge Note: Overlap Therapy is Warfarin and Anticoagulant Meds if any: NOT Prescribed or Continued at Discharge
--- NOTE | 2016-09-25 15:28 | PN- Att Addend ---
Attending Addendum Attending Brief Note Patient sitting up in the chair, feels a little better but still complaining of a posterior headache blood pressures improved on medications no other major changes on physical appreciate cardiology's input and recommendations will get an echocardiogram continue monitoring the blood pressure follow-up the troponins which have been trending down patient has had elevated Lyme titers in the past will follow up and continue monitoring the headaches 24 TOTALS 09/25 0000 09/24 0000 Intake Total 120 Output Total 400 Balance -280 Intake, Oral 120 Output, Urine 400 Patient 150 lb Weight Weight Reported by Patient Measurement Method Current Medications Sig/Chad Start time Last Medication Dose Route Stop Time Status Admin Acetaminophen 650 MG Q6P PRN 09/24 1545 AC PO Acetaminophen 1,000 MG Q6P PRN 09/24 1545 AC IV Amlodipine Besylate 0 .STK-MED ONE 09/24 1716 DC PO Amlodipine Besylate 5 MG ONCE ONE 09/24 1645 DC 09/24 PO 09/24 1646 1714 Cyanocobalamin 1,000 MCG DAILY 09/25 1000 AC 09/25 PO 0912 Diphenhydramine HCl 25 MG ONCE ONE 09/24 1800 DC 09/24 IV 09/24 1801 1756 Enoxaparin Sodium 40 MG DAILY@1600 09/25 1600 AC SC Enoxaparin Sodium 0 .STK-MED ONE 09/24 1606 DC SC Enoxaparin Sodium 40 MG DAILY 09/24 1540 DC 09/24 SC 1604 Hydralazine HCl 10 MG ONCE ONE 09/24 1645 DC 09/24 IV 09/24 1646 1655 Hydralazine HCl 0 .STK-MED ONE 09/24 1633 DC .ROUTE Lisinopril 40 MG DAILY 09/25 1000 AC 09/25 PO 0913 Ondansetron HCl 4 MG ONCE ONE 09/24 1800 DC IV 09/24 1801 Oxycodone/ 2 TAB Q6P PRN 09/24 1545 AC Acetaminophen PO Patient Medication 1 ED .STK-MED ONE 09/25 1414 DC Teaching ED 09/25 1415 Laboratory Tests 09/25/16 0605: Anion Gap 9, Estimated GFR 54 L, BUN/Creatinine Ratio 28.0 H, Magnesium 2.2, CBC w Diff NO MAN DIFF REQ, RBC 3.95 L, MCV 97.0, MCH 32.1 H, RDW 13.7, MPV 7.7, Gran % 60.6, Lymphocytes % 31.5, Monocytes % 6.3, Eosinophils % 1.3, Basophils % 0.3, Absolute Granulocytes 3.9, Absolute Lymphocytes 2.0, Absolute Monocytes 0.4, Absolute Eosinophils 0.1, Absolute Basophils 0, PUBS MCHC 33.1 09/25/16 0100: Troponin I 0.16 *H 09/24/16 2156: Urine Color YEL, Urine Clarity CLEAR, Urine pH 7.0, Ur Specific [place] 1.010, Urine Protein NEG, Urine Ketones NEG, Urine Nitrite NEG, Urine Bilirubin NEG, Urine Urobilinogen 0.2, Ur Leukocyte Esterase TRACE H, Ur Microscopic SEDIMENT EXAMINED, Urine RBC RARE, Urine WBC 1-3 H, Ur Epithelial Cells RARE, Urine Bacteria FEW H, Urine Hemoglobin NEG, Urine Glucose NEG 09/24/16 1552: Troponin I 0.19 *H 09/24/16 1542: Troponin I Cancelled 09/24/16 1205: Lyme Ab (Western Blot) Pending, Lyme IgG 18 kDa Band Pending, Lyme IgG 23 kDa Band Pending, Lyme IgG 28 kDa Band Pending, Lyme IgG 30 kDa Band Pending, Lyme IgG 39 kDa Band Pending, Lyme IgG 41 kDa Band Pending, Lyme IgG 45 kDa Band Pending, Lyme IgG 58 kDa Band Pending, Lyme IgG 66 kDa Band Pending, Lyme IgG 93 kDa Band Pending, Lyme IgM (Western Blot) Pending, Lyme IgM 23 kDa Band Pending, Lyme IgM 39 kDa Band Pending, Lyme IgM 41 kDa Band Pending 09/24/16 1205: Anion Gap 11, Estimated GFR > 60, BUN/Creatinine Ratio 34.3 H, Glucose 132 H, Calcium 9.2, Total Bilirubin 0.5, AST 24, ALT 36, Alkaline Phosphatase 49, Troponin I 0.21 *H, Total Protein 6.8, Albumin 3.9, Globulin 2.9, Albumin/ Globulin Ratio 1.3, CBC w Diff NO MAN DIFF REQ, RBC 3.92 L, MCV 96.7, MCH 31.9 H, RDW 13.3, MPV 7.5, Gran % 66.7, Lymphocytes % 24.8, Monocytes % 4.7, Eosinophils % 3.3, Basophils % 0.5, Absolute Granulocytes 4.7, Absolute Lymphocytes 1.8, Absolute Monocytes 0.3, Absolute Eosinophils 0.2, Absolute Basophils 0, PUBS MCHC 33.0, ESR Westergren 21 H, Lyme Disease Antibody 3.58 *H Vital Signs Date Time Temp Pulse Resp B/P B/P Pulse O2 O2 Flow FiO2 Mean Ox Delivery Rate 09/25 0913 60 120/64 09/25 0823 99.1 60 18 120/64 94 Room Air Intake & Output 09/25 1600 Intake Total 480 Output Total Balance 480 Intake, Oral 480 She might have had a rash from the amlodipine this was discontinued.
[2016-09-25 16:09] VITALS: BP 130/62
--- NOTE | 2016-09-25 19:07 | Event Note ---
Event Note Event Note: Echo was done earlier today and patient ready for discharge but echo report is still pending. I spoke with the attending physician Dr. Mendoza who said patient can be discharged today and follow up regarding the echo results outpatient.
--- NOTE | 2016-09-26 10:28 | ECHOCARDIOGRAM REPORT ---
DREW DRISCOLL Age: 76 : 1940 Gender: F Exam Date: 09/25/2016 15:57 Exam Location: [address] Ht (in): 62 Wt (lb): 150 BSA: 1.74 BP: 120 / 64 Ordering Physician: JULIENNE WHALEN MD Referring Physician: Stevenson Oliva MD Technologist: Juhi Lamas [facility] Room Number: 180-02 Indications: HYPERTENSION Rhythm: Sinus Technical Quality: Good FINDINGS Left Ventricle Normal size left ventricle. Mild concentric left ventricular hypertrophy. Normal left ventricular ejection fraction visually estimated at >60%. Right Ventricle Normal right ventricular size and function. Right Atrium Normal right atrial size. Left Atrium Mild left atrial dilatation. Mitral Valve Moderate mitral annular calcification. Trace mitral regurgitation. Aortic Valve Diffuse thickening of the aortic valve cusps with reduced excursion. Moderate aortic stenosis. No aortic regurgitation. Tricuspid Valve Tricuspid valve not well visualized, grossly normal. Mild tricuspid regurgitation. No evidence of pulmonary hypertension. Pulmonic Valve Pulmonic valve not well visualized, grossly normal. Pericardium No pericardial effusion. Great Vessels 4.0 cm dilated ascending aorta. CONCLUSIONS Normal size left ventricle. Mild concentric left ventricular hypertrophy. Normal left ventricular ejection fraction visually estimated at > 60%. Mild left atrial dilatation. Moderate mitral annular calcification. Moderate aortic stenosis. Mild tricuspid regurgitation. 4.0 cm dilated ascending aorta. Stevenson Oliva M.D. (Electronically Signed) Final Date: 26 September 2016 10:27 MEASUREMENTS (Male / Female) Normal Values 2D ECHO LV Diastolic Diameter PLAX 3.1 cm 4.2 - 5.9 / 3.9 - 5.3 cm LV Systolic Diameter PLAX 2.0 cm 2.1 - 4.0 cm LV Fractional Shortening PLAX 35.5 % 25 - 46 % LV Ejection Fraction 2D Teich 66.4 % IVS Diastolic Thickness 1.5 cm LVPW Diastolic Thickness 1.5 cm LV Relative Wall Thickness 1.0 RV Internal Dim ED PLAX 2.6 cm 1.9 - 3.8 cm LVOT Diameter 2.1 cm Aortic Root Diameter 3.0 cm LA Systolic Diameter LX 5.1 cm 3.0 - 4.0 / 2.7 - 3.8 cm LA Volume 43.0 cm 18 - 58 / 22 - 52 cm Ascending Aorta Diameter 4.0 cm DOPPLER AV Peak Velocity 306.0 cm/s AV Peak Gradient 37.5 mmHg AV Mean Velocity 226.0 cm/s AV Mean Gradient 23.0 mmHg AV Velocity Time Integral 62.9 cm LVOT Peak Velocity 121.0 cm/s LVOT Peak Gradient 5.9 mmHg LVOT Mean Velocity 86.1 cm/s LVOT Mean Gradient 3.0 mmHg LVOT Velocity Time Integral 26.3 cm LVOT Stroke Volume 91.1 cm AV Area Cont Eq vti 1.4 cm AV Area Cont Eq pk 1.4 cm MV Peak Velocity 141.0 cm/s MV Peak Gradient 8.0 mmHg MV Mean Velocity 58.3 cm/s MV Mean Gradient 2.0 mmHg Mitral E Point Velocity 65.8 cm/s Mitral A Point Velocity 129.0 cm/s Mitral E to A Ratio 0.5 MV PHT Velocity 85.3 cm/s MV Deceleration Harding 232.0 cm/s MV Pressure Half Time 110.3 ms MV Area PHT 2.0 cm MV Deceleration Time 412.0 ms TR Peak Velocity 255.0 cm/s TR Peak Gradient 26.0 mmHg Right Atrial Pressure 5.0 mmHg Pulmonary Artery Systolic Pressu 31.0 mmHg Right Ventricular Systolic Press 31.0 mmHg PV Peak Velocity 130.0 cm/s PV Peak Gradient 6.8 mmHg PV Mean Velocity 84.3 cm/s PV Mean Gradient 3.0 mmHg PV Velocity Time Integral 20.5 cm LV E' Lateral Velocity 5.9 cm/s Mitral E to LV E' Lateral Ratio 11.2 LV E' Septal Velocity 4.2 cm/s Mitral E to LV E' Septal Ratio 15.7
--- NOTE | 2016-10-10 12:01 | Discharge Summary ---
Visit Information Visit Dates Admission Date: 09/24/16 Discharge Date: 09/25/16 Hospital Course Course Attending Physician: XIOMARA MENDOZA MD Primary Care Physician: XIOMARA MENDOZA MD Consulting Request: Consulting Specialty: Cardiology Consulting Physician: Dr. Oliva Reason for Consult: hypertensive urgency and bump in the troponin Hospital Course: 76-year-old [place]har[place] female poor historian. Came in because one day history of a severe headache nausea vomiting in the ER was found to have very high blood pressure got IV medications which improved the symptoms and the blood pressure patient was admitted for observation the first troponin had a little bump there that EKG showed normal sinus rhythm with some ST-T abnormalities which might be not new. She had a CAT scan of the head which showed no acute pathology chest x -ray showed no acute pathology. The next morning the patient was much better blood pressure was improved and arrangements were made for the patient to be discharged home to follow-up at the office as an outpatient Complications: None Allergies: Coded Allergies: amlodipine (Intermediate, FLUSHING RASH TINGLING LIPS/TONGUE 09/24/16) Significant Procedures: Vision had a CAT scan of the head which showed no acute pathology, check chest x -ray showed no acute infiltrates and her EKG showed normal sinus rhythm with a rate of [address]-T abnormalities in the anteroseptal leads Pertinent Lab Results: Laboratory Tests 09/24 09/24 09/24 [id number] Chemistry Sodium (137 - 145 mmol/L) 138 Potassium (3.5 - 5.1 mmol/L) 4.3 Chloride (98 - 107 mmol/L) 99 Carbon Dioxide (22 - 30 mmol/L) 28 Anion Gap (5 - 16) 11 BUN (7 - 17 mg/dL) 24 H Creatinine (0.5 - 1.0 mg/dL) 0.7 Estimated GFR (>60 ml/min) > 60 BUN/Creatinine Ratio (7 - 25 %) 34.3 H Glucose (65 - 99 mg/dL) 132 H Calcium (8.4 - 10.2 mg/dL) 9.2 Total Bilirubin (0.2 - 1.3 mg/dL) 0.5 AST (14 - 36 U/L) 24 ALT (9 - 52 U/L) 36 Alkaline Phosphatase (<127 U/L) 49 Troponin I (< 0.11 ng/ml) 0.19 *H Cancelled 0.21 *H Total Protein (6.3 - 8.2 g/dL) 6.8 Albumin (3.5 - 5.0 g/dL) 3.9 Globulin (1.9 - 4.2 gm/dL) 2.9 Albumin/Globulin Ratio (1.1 - 2.2 %) 1.3 Hematology CBC w Diff NO MAN DIFF REQ WBC (4.8 - 10.8 /CUMM) 7.1 RBC (4.20 - 5.40 /CUMM) 3.92 L Hgb (12.0 - 16.0 G/DL) 12.5 Hct (37 - 47 %) 37.9 MCV (81.0 - 99.0 FL) 96.7 MCH (27.0 - 31.0 PG) 31.9 H RDW (11.5 - 14.5 %) 13.3 Plt Count (130 - 400 /CUMM) 260 MPV (7.4 - 10.4 FL) 7.5 Gran % (42.2 - 75.2 %) 66.7 Lymphocytes % (20.5 - 51.1 %) 24.8 Monocytes % (1.7 - 9.3 %) 4.7 Eosinophils % (0 - 5 %) 3.3 Basophils % (0.0 - 2.0 %) 0.5 Absolute Granulocytes (1.4 - 6.5 /CUMM) 4.7 Absolute Lymphocytes (1.2 - 3.4 /CUMM) 1.8 Absolute Monocytes (0.10 - 0.60 /CUMM) 0.3 Absolute Eosinophils (0.0 - 0.7 /CUMM) 0.2 Absolute Basophils (0.0 - 0.2 /CUMM) 0 PUBS MCHC (33.0 - 37.0 G/DL) 33.0 ESR Westergren (0 - 20 MM) 21 H Serology Lyme Disease Antibody Pending Disposition Summary Disposition Principal Diagnosis: Hypertensive urgency with headaches and nausea and bump in the troponin Additional Diagnosis: Hypertension Hyperlipidemia History of Lyme disease Discharge Disposition: home health services Discharge Instructions General Discharge Information Code Status: Full Code Patient's Diet: Healthy heart Patient's Activity: As tolerated Follow-Up Instructions/Appts: Follow-up with Dr. Mendoza and Dr. Oliva Medications at Discharge Discharge Medications: Continue taking these medications: Lisinopril (Lisinopril) 40 MG TABLET 1 Tablet ORAL DAILY Qty = 90 Comments: Last Taken: 09/25/16 Time: 9AM Cyanocobalamin (Vitamin B-12) (Vitamin B12) (Unknown Strength) TABLET Unknown Dose ORAL DAILY Comments: Last Taken: 09/25/16 Time: 9AM Copies To: XIOMARA MENDOZA MD; ANGELINA DEAN,DAVIAN Attending Review Statement Documenting Attending: XIOMARA MENDOZA MD
== END 2016-09-25 19:17 | DRG 305 ==
LOC: ERH 11:17 → 1NO 14:41 → ERHI 14:41 → ENRESERV 16:36 → ENTRNSPT 17:18 → 1NO 17:43 → CMPTRNSPT 18:41 → ENPENDDIS 09-25 18:57 → 1NO 09-25 19:17
PROVIDERS: Emergency Medicine; Internal Medicine; ADMIT Internal Medicine
DX: I16.0 Hypertensive urgency (principal); I24.8 Other forms of acute ischemic heart disease; I10 Essential (primary) hypertension; E78.5 Hyperlipidemia, unspecified; Z66 Do not resuscitate; L27.1 Localized skin eruption due to drugs and medicaments taken internally; T46.1X5A Adverse effect of calcium-channel blockers, initial encounter
CPT/HCPCS: 1NSP; 86618; 36415; 81001; 82436; 87040; 87086; 93005; 93010; 93306; 96374; 96375; 99291; J0131; J0360; J1200; J1650; J2405; J3490